=== PATIENT | male | born 1980 | race African-American/Black ===

== ENCOUNTER 2020-11-22 18:47 | Emergency (ER) | payer OTHER ==
[2020-11-22] MEDS ORDERED: KETOROLAC TROMETHAMINE 60 MG/2 ML VIAL IM NR (19:15)
[2020-11-22] MEDS ORDERED: DIAZEPAM 2 MG TAB PO NR (19:15)
[2020-11-22] MEDS ORDERED: NAPROXEN250 MG PO (21:22)
[2020-11-22] MEDS ORDERED: ROBAXIN-750750 MG PO (21:22)
== END 2020-11-22 22:07 | disposition home or self-care (01) ==
LOC: ER 20:35
DX: M54.5 Low back pain (principal); M79.18 Myalgia, other site
CPT/HCPCS: 72128; 72131; 99283; J1885